=== PATIENT | female | born 1995 | race Caucasian/White ===

== ENCOUNTER 2023-03-12 07:22 | Inpatient (IN) ==
[2023-03-12] MEDS ORDERED: OXYTOCIN 30 UNITS/NSS 30 UNITS/500 ML BAG IV PRN (07:35)
[2023-03-12] MEDS ORDERED: LIDOCAINE 1% LOCAL 20 ML VIAL INFIL PRN (07:35)
[2023-03-12] MEDS ORDERED: Patient's HEIGHT &/or WEIGHT Needed SCH (08:00)
[2023-03-12 08:39] LABS: Hematocrit (blood only) 40.2 % (37.0-47.0); Hemoglobin 13.2 g/dl (12.0-16.0); Mean Corpuscular Hemoglobin 30.4 pg (25.0-34.0); Mean Corpuscular Hgb Conc 32.8 g/dL (32.0-36.0); Mean Corpuscular Volume 92.6 fL (80.0-100.0); Mean Platelet Volume 11.1 fL (9.4-12.4); Platelet Count 182 K/uL (130-400); RDW Coefficient of Variation 13.8 % (11.5-14.5); RDW Standard Deviation 47.1 fL (36.4-46.3); Red Blood Count 4.34 M/uL (4.20-5.40); White Blood Count 12.04 K/ul (4.8-10.8)
[2023-03-12] MEDS: LACTATED RINGER'S 1,000 ML IV PRN ×3 (09:06→18:12)
[2023-03-12] MEDS: OXYTOCIN 30 UNITS/NSS 30 UNITS/500 ML BAG IV PRN (09:07)
--- NOTE | 2023-03-12 13:04 | Obstetrical Progress Note ---
Date of Service March 12, 2023 Assessment & Plan (1) Polyhydramnios: Plan IUP at term. IVF with polyhydramnios. The cervical balloon will be placed back on traction and Pitocin induction begun. Once the balloon has been expelled and she has a regular contraction pattern, we will attempt AROM. Anticipate vaginal delivery. Epidural if or when requested Admission and Anticipated Discharge Date Admission Date: March 12, 2023 Subjective Patient presents for continuation of her induction. She had a cervical balloon successfully placed last evening. She became very uncomfortable and took the tension off of the balloon so she could sleep last p.m. she did have some bleeding with insertion of the balloon but this has subsided. complicated by hypothyroidism polyhydramnios and IVF . Growth scans have shown an appropriate sized infant. GBS is negative Review of Systems Review of Systems: All systems reviewed & are unremarkable except as noted in HPI & below Physical Exam Constitutional: WD/WN, vitals as above Psychiatric: A+Ox3, euthymic affect Genitourinary: OB Exam Abdomen: + vertex, + estimated weight (7-8 pounds) and + irregular contractions Manual OB Exam: + cervical dilation 1 cm, + cervical effacement and + station high OB Exam Monitor Tracing: + external FHT monitor used, + external uterine monitor used, + category I and + normal FHT variability cervical exam difficult as balloon is still in the cervix. Results & Data Vital Signs (Past 12 Hours) Vital Signs Temp Pulse Resp BP 03/12/23 11:58 75 20 118/81 03/12/23 10:53 97.7 F 65 20 114/71 03/12/23 09:46 82 20 132/77 03/12/23 09:08 83 132/80 03/12/23 08:47 82 127/76 03/12/23 08:38 75 122/76 03/12/23 07:48 97.9 F 92 H 20 155/95 H 03/12/23 07:44 92 H 155/95 H PG Care Time/CCT Total # of Minutes Spent Total Time Spent with Patient: Total time spent is greater than 50% in coordination of care (as documented) at patient's floor/unit and/or counseling patient: Coding Level of Care Code None Diagnoses Polyhydramnios O40.9XX0
[2023-03-12] MEDS ORDERED: SODIUM CHLORIDE 0.9% PF INJ 10 ML VIAL ONE (13:58)
[2023-03-12] MEDS ORDERED: fentaNYL citrate PF 100 MCG/2 ML VIAL ONE (13:58)
[2023-03-12] MEDS ORDERED: fentANYL 2 MCG/ML BUPIVacaine 0.125%-NSS 100ML BAG ONE (13:58)
[2023-03-12] MEDS ORDERED: ePHEDrine sulfate 50 MG/ML AMP ONE (13:58)
[2023-03-12] MEDS ORDERED: LIDOCAINE 2%/EPINEPHRINE 1:200,000 20 ML PF ONE (13:59)
[2023-03-12] MEDS ORDERED: BUPIVACAINE 0.25% PF 30 ML VIAL ONE (13:59)
[2023-03-12] MEDS ORDERED: BUPIVACAINE 0.25% PF 30 ML VIAL EPI STA (14:30)
[2023-03-12] MEDS ORDERED: diphenhydrAMINE 50 MG/ML VIAL IV PRN (14:30)
[2023-03-12] MEDS ORDERED: LIDOCAINE 2% MPF LOCAL 5 ML VIAL EPI PRN (14:30)
[2023-03-12] MEDS ORDERED: NALOXONE HCL 0.4 MG/1 ML VIAL/CARP IV PRN (14:30)
[2023-03-12] MEDS ORDERED: NALBUPHINE HCL 5 MG in SYRINGE 0 ML IV PRN (14:30)
[2023-03-12] MEDS ORDERED: ROPIVACAINE 0.5% PF 5 MG/ML 20 ML VIAL EPI PRN (14:30)
[2023-03-12] MEDS ORDERED: LIDOCAINE 2%/EPINEPHRINE 1:200,000 20 ML PF EPI STA (14:30)
[2023-03-12] MEDS ORDERED: SODIUM CHLORIDE 0.9% PF INJ 10 ML VIAL EPI STA (14:30)
[2023-03-12] MEDS ORDERED: fentaNYL citrate PF 100 MCG/2 ML VIAL EPI PRN (14:30)
[2023-03-12] MEDS ORDERED: fentaNYL citrate PF 100 MCG/2 ML VIAL EPI STA (14:30)
[2023-03-12] MEDS ORDERED: NALOXONE HCL 1 MG in SODIUM CHLORIDE 0.9% 1,000 ML IV PRN (14:30)
[2023-03-12] MEDS ORDERED: ePHEDrine sulfate 50 MG/ML AMP IV PRN (14:30)
[2023-03-12] MEDS ORDERED: SODIUM CHLORIDE 0.9% PF INJ 10 ML VIAL EPI PRN (14:30)
[2023-03-12] MEDS ORDERED: BUPIVACAINE 0.25% PF 30 ML VIAL EPI PRN (14:30)
--- NOTE | 2023-03-12 14:30 | Anesthesiology Consultation ---
Date of Service March 12, 2023 Assessment & Plan (1) Encounter for pre-operative examination: Chart Review Chart Review: Patient NOT seen in Pre Admission Testing and Acceptable Risk for Labor Epidural Consults Requested none History Height/Weight Height: 5 ft 3 in Weight: 87.543 kg Allergies Allergy/AdvReac Type Severity Reaction Status Date / Time sesame oil Allergy Intermediate swellingSEE Verified 03/11/23 19:48 COMMENT Medications Home Medications Medication Instructions Recorded Confirmed Last Taken cholecalciferol (vitamin D3) 25 5,000 unit PO DAILY 01/04/21 03/12/23 03/11/23 mcg (1,000 unit) capsule aspirin 81 mg tablet,delayed 81 mg PO DAILY 08/16/22 03/12/23 03/11/23 release (Adult Aspirin Regimen) docosahexaenoic acid 200 mg 200 mg PO DAILY 09/17/22 03/12/23 03/11/23 capsule ( DHA) levothyroxine 112 mcg tablet 112 mcg PO DAILY 90 days #90 tabs 10/30/22 03/12/23 03/11/23 Active Medications Generic Name Dose Route Start Last Admin Trade Name Freq PRN Reason Stop Dose Admin Oxytocin 30 units in 500 mls @ 13 mls/hr 03/12/23 07:35 03/12/23 13:15 Pitocin 30 Units/Nss IV 03/14/23 07:34 0.78 units/hr .Q24H PRN 13 mls/hr Labor Induction/Augmentation Titration Protocol 0.78 UNITS/HR Lactated Ringer's 1,000 mls @ 125 mls/hr 03/12/23 07:35 03/12/23 09:06 Lr IV 03/14/23 07:34 125 mls/hr .Q8H PRN Administration L&D Protocol Protocol Past Medical History Medical History Polyhydramnios Frequent UTI Albert's thyroiditis Hypothyroidism Past Family History Family History Brother Cancer Hogkin's lymphoa Father Hypertension Hyperlipemia Mother Thyroid disorder Past Surgical History Surgical History S/P wisdom tooth extraction No significant past surgical history Social History Smoking Status: Never smoker Do You Dip or Chew Tobacco: No Hx Alcohol Use: No Hx Substance Use: No Physical Exam Vital Signs Last Vital Signs Temp 97.7 F 03/12/23 10:53 Pulse 85 03/12/23 14:26 Resp 20 03/12/23 11:58 BP 144/91 H 03/12/23 14:10 Pulse Ox 96 03/12/23 14:26 Testing Laboratory Results 03/12/23 08:16
[2023-03-12] MEDS ORDERED: ACETAMINOPHEN 325 MG TAB PO PRN (17:57)
--- NOTE | 2023-03-12 20:06 | Labor Progress Brief Note ---
Date of Service March 12, 2023 Subjective Reason For Note: Routine Evaluation starting to feel some pelvic pressure pitocin now at 23 milliunits contractions are getting more regular FHT- reassuring cervix 5-6cm/80/-2 Review of Systems All systems reviewed & are unremarkable except as noted in HPI & below Assessment & Plan (1) Polyhydramnios: Plan continue current labor plan vertex how better applied to the cervix pitocin limit increased to 30 milliunits Admission and Anticipated Discharge Date Admission Date: March 12, 2023 Results & Data Vital Signs (Past 12 Hours) Vital Signs Temp Pulse Resp BP Pulse Ox 03/12/23 19:59 86 98 03/12/23 19:54 74 99 03/12/23 19:51 81 124/75 03/12/23 19:49 72 99 03/12/23 19:44 66 100 03/12/23 19:39 79 99 03/12/23 19:35 70 117/77 03/12/23 19:34 85 97 03/12/23 19:29 75 99 03/12/23 19:24 65 99 03/12/23 19:21 85 20 123/80 03/12/23 19:19 75 98 03/12/23 19:14 69 98 03/12/23 19:09 66 98 03/12/23 19:07 98.1 F 68 20 118/74 03/12/23 19:04 76 99 03/12/23 18:59 87 98 03/12/23 18:54 93 H 98 03/12/23 18:52 81 112/71 03/12/23 18:49 78 99 03/12/23 18:44 90 98 03/12/23 18:39 85 99 03/12/23 18:35 71 120/66 03/12/23 18:34 89 99 03/12/23 18:29 67 99 03/12/23 18:24 65 99 03/12/23 18:21 63 20 121/73 03/12/23 18:19 69 98 03/12/23 18:14 76 99 03/12/23 18:09 90 100 03/12/23 18:06 81 123/80 03/12/23 18:04 83 100 03/12/23 17:59 86 100 03/12/23 17:54 68 98 03/12/23 17:50 62 20 114/67 03/12/23 17:49 88 98 03/12/23 17:44 85 98 03/12/23 17:39 74 98 03/12/23 17:36 69 125/73 03/12/23 17:34 84 99 03/12/23 17:29 69 99 03/12/23 17:24 68 98 03/12/23 17:20 78 20 127/68 03/12/23 17:19 73 97 03/12/23 17:14 71 96 03/12/23 17:09 78 96 03/12/23 17:07 73 118/73 03/12/23 17:04 78 97 03/12/23 16:59 77 97 03/12/23 16:54 74 97 03/12/23 16:52 98.6 F 87 20 124/84 03/12/23 16:49 98 H 97 03/12/23 16:44 75 98 03/12/23 16:39 64 96 03/12/23 16:35 71 109/69 03/12/23 16:34 71 96 03/12/23 16:29 67 96 03/12/23 16:24 66 96 03/12/23 16:21 75 115/76 03/12/23 16:19 82 97 03/12/23 16:14 79 98 03/12/23 16:09 87 98 03/12/23 16:04 108 H 94 03/12/23 16:00 60 100/58 L 03/12/23 15:59 62 96 03/12/23 15:55 72 111/63 03/12/23 15:54 64 98 03/12/23 15:51 60 20 110/60 03/12/23 15:49 71 97 03/12/23 15:45 63 20 112/71 03/12/23 15:44 69 96 03/12/23 15:40 69 20 112/68 03/12/23 15:39 71 98 03/12/23 15:35 71 20 118/63 03/12/23 15:34 66 98 03/12/23 15:30 70 117/65 03/12/23 15:29 67 98 03/12/23 15:25 95 H 20 123/75 03/12/23 15:24 92 H 97 03/12/23 15:21 76 20 117/74 03/12/23 15:19 89 98 03/12/23 15:14 76 117/66 99 03/12/23 15:12 69 119/69 03/12/23 15:11 98.2 F 77 20 127/78 03/12/23 15:09 99 03/12/23 15:09 83 03/12/23 15:09 95 H 20 115/85 03/12/23 15:07 83 125/68 03/12/23 15:04 92 H 20 124/72 98 03/12/23 15:03 77 20 137/77 03/12/23 15:00 89 20 116/67 03/12/23 14:59 98 03/12/23 14:59 98 H 03/12/23 14:59 77 20 118/68 03/12/23 14:57 86 20 115/78 03/12/23 14:55 91 H 20 109/65 03/12/23 14:54 90 97 03/12/23 14:51 86 133/71 03/12/23 14:49 97 H 99 03/12/23 14:44 118 H 98 03/12/23 14:39 78 146/79 H 100 03/12/23 14:31 88 97 03/12/23 14:26 85 96 03/12/23 14:21 79 99 03/12/23 14:16 86 99 03/12/23 14:11 103 H 99 03/12/23 14:10 88 144/91 H 03/12/23 13:02 81 120/76 03/12/23 11:58 75 20 118/81 03/12/23 10:53 97.7 F 65 20 114/71 03/12/23 09:46 82 20 132/77 03/12/23 09:08 83 132/80 03/12/23 08:47 82 127/76 03/12/23 08:38 75 122/76
[2023-03-12] MEDS ORDERED: ONDANSETRON INJ 2 MG/ML 2 ML VIAL ONE (21:29)
[2023-03-12] MEDS: fentANYL 2 MCG/ML BUPIVacaine 0.125%-NSS 100ML BAG EPI PRN (21:36)
[2023-03-12] MEDS ORDERED: NURSING L&D Epidural Breakthrough Pain Update ONE (23:54)
--- NOTE | 2023-03-13 01:40 | Anesthesia Procedure Note ---
Date of Service March 13, 2023 Anesthesia Epidural Re-Dose Vital Signs Temp Pulse Resp BP Pulse Ox O2 Del Method 98.4 F 150 H 18 126/89 100 Room Air 03/12/23 23:25 03/13/23 01:36 03/12/23 23:25 03/13/23 01:36 03/13/23 01:34 03/12/23 23:15 Notes Pain Intensity: 0 Dilatation (cm): 7.5 Effacement (%): 90 Called by nursing to evaluate epidural as the patient is having increased pain. The epidural was re-dosed with the following medications (all medications via epidural route) after negative aspiration of the epidural catheter for CSF/HEME. 0.125% Bupivacaine (8ml) with 100 mcg Fentanyl After Epidural Re-Dose Mental Status: alert / awake / arousable Pain: improving with treatment Airway Patency, RR, SpO2: stable & adequate BP & HR: stable & adequate
[2023-03-13] MEDS: LACTATED RINGER'S 1,000 ML IV PRN ×3 (01:47→10:27)
[2023-03-13] MEDS: ONDANSETRON INJ 2 MG/ML 2 ML VIAL IV PRN ×3 (02:13→13:29)
[2023-03-13] MEDS: CALCIUM CARBONATE 500 MG CHEWABLE TAB PO PRN ×2 (02:43→13:29)
--- NOTE | 2023-03-13 03:28 | Labor Progress Brief Note ---
Date of Service March 13, 2023 Subjective Reason For Note: Routine Evaluation pitocin now at 27 millliunits and still difficult to maintain an adequate contraction pattern she is feeling increased pelvic pressure with some of the contractions. cervix 7-8cm with mild swelling of the right cervix. baby doesn't tolerate it when she is lying on her right side but is otherwise a reassuring FHR tracing will place [place] catheter and Type & screen continue to increase pitocin to maximum of 30 milliunits Assessment & Plan Admission and Anticipated Discharge Date Admission Date: March 12, 2023 Results & Data Vital Signs (Past 12 Hours) Vital Signs Temp Pulse Resp BP Pulse Ox O2 Del Method 03/13/23 03:22 90 127/77 03/13/23 03:19 95 H 100 03/13/23 03:14 72 96 03/13/23 03:09 75 98 03/13/23 03:05 63 131/73 03/13/23 03:04 69 98 03/13/23 02:59 74 96 03/13/23 02:54 80 95 03/13/23 02:52 68 129/75 03/13/23 02:49 65 97 03/13/23 02:44 18 03/13/23 02:44 99.0 F 96 H 18 97 03/13/23 02:42 80 94 03/13/23 02:39 81 98 03/13/23 02:36 75 120/65 03/13/23 02:34 79 99 03/13/23 02:31 85 92 03/13/23 02:29 85 99 03/13/23 02:24 93 H 99 03/13/23 02:23 85 93 03/13/23 02:20 91 H 144/87 H 03/13/23 02:19 91 H 100 03/13/23 02:14 107 H 99 03/13/23 02:09 86 97 03/13/23 02:06 72 140/84 03/13/23 02:04 74 97 03/13/23 01:59 67 100 03/13/23 01:58 70 94 03/13/23 01:54 72 99 03/13/23 01:51 75 136/87 03/13/23 01:49 77 100 03/13/23 01:44 79 100 03/13/23 01:39 97 H 98 03/13/23 01:36 150 H 126/89 03/13/23 01:34 75 100 03/13/23 01:29 71 100 03/13/23 01:24 61 100 03/13/23 01:22 62 120/61 03/13/23 01:19 60 100 03/13/23 01:14 76 100 03/13/23 01:09 77 98 03/13/23 01:05 79 125/83 03/13/23 01:04 68 98 03/13/23 00:59 74 98 03/13/23 00:54 80 97 03/13/23 00:51 96 H 119/88 03/13/23 00:49 83 98 03/13/23 00:44 76 98 03/13/23 00:39 68 97 03/13/23 00:36 74 125/84 03/13/23 00:34 81 99 03/13/23 00:29 79 99 03/13/23 00:24 90 97 03/13/23 00:22 91 H 129/91 03/13/23 00:19 75 97 03/13/23 00:14 107 H 97 03/13/23 00:09 95 H 96 03/13/23 00:05 71 120/78 03/13/23 00:04 80 98 03/12/23 23:59 77 97 03/12/23 23:54 81 98 03/12/23 23:51 75 124/82 03/12/23 23:49 80 98 03/12/23 23:44 81 97 03/12/23 23:39 74 96 03/12/23 23:36 80 118/58 L 03/12/23 23:34 86 97 03/12/23 23:29 79 96 03/12/23 23:25 18 03/12/23 23:25 98.4 F 18 03/12/23 23:24 84 96 03/12/23 23:21 86 136/79 03/12/23 23:19 87 98 03/12/23 23:15 Room Air 03/12/23 23:14 82 99 03/12/23 23:09 81 97 03/12/23 23:06 73 120/69 03/12/23 23:04 74 96 03/12/23 22:59 76 96 03/12/23 22:54 77 95 03/12/23 22:52 72 120/66 01/02/24 22:49 70 98 03/12/23 22:44 77 97 03/12/23 22:39 87 96 03/12/23 22:37 73 20 118/64 03/12/23 22:34 87 97 03/12/23 22:29 85 98 03/12/23 22:24 77 97 03/12/23 22:23 80 115/80 03/12/23 22:19 73 97 03/12/23 22:14 76 97 03/12/23 22:09 89 97 03/12/23 22:07 73 124/80 03/12/23 22:04 87 97 03/12/23 21:59 90 96 03/12/23 21:54 77 97 03/12/23 21:49 72 99 03/12/23 21:44 82 97 03/12/23 21:42 92 H 91 03/12/23 21:39 82 98 03/12/23 21:37 83 124/85 03/12/23 21:34 81 99 03/12/23 21:29 76 100 03/12/23 21:24 92 H 100 03/12/23 21:20 92 H 131/92 03/12/23 21:19 97 H 100 03/12/23 21:16 99 H 86 L 03/12/23 21:14 92 H 100 03/12/23 21:09 76 97 03/12/23 21:06 84 123/79 03/12/23 21:04 76 99 03/12/23 21:00 20 03/12/23 21:00 98.2 F 20 03/12/23 20:59 67 99 03/12/23 20:54 77 97 03/12/23 20:51 70 129/75 03/12/23 20:49 80 99 03/12/23 20:44 89 99 03/12/23 20:39 72 98 03/12/23 20:36 58 L 20 131/75 03/12/23 20:34 93 H 98 03/12/23 20:29 73 98 03/12/23 20:24 64 98 03/12/23 20:21 69 125/79 03/12/23 20:19 63 97 03/12/23 20:14 62 97 03/12/23 20:09 63 97 03/12/23 20:05 66 119/75 03/12/23 20:04 66 97 03/12/23 19:59 86 98 03/12/23 19:54 74 99 03/12/23 19:51 81 124/75 03/12/23 19:49 72 99 03/12/23 19:44 66 100 03/12/23 19:39 79 99 03/12/23 19:35 70 18 117/77 03/12/23 19:34 85 97 03/12/23 19:29 75 99 03/12/23 19:24 65 99 03/12/23 19:21 85 20 123/80 03/12/23 19:19 75 98 03/12/23 19:14 69 98 03/12/23 19:09 66 98 03/12/23 19:07 98.1 F 68 20 118/74 03/12/23 19:04 76 99 03/12/23 18:59 87 98 03/12/23 18:54 93 H 98 03/12/23 18:52 81 112/71 03/12/23 18:49 78 99 03/12/23 18:44 90 98 03/12/23 18:39 85 99 03/12/23 18:35 71 120/66 03/12/23 18:34 89 99 03/12/23 18:29 67 99 03/12/23 18:24 65 99 03/12/23 18:21 63 20 121/73 03/12/23 18:19 69 98 03/12/23 18:14 76 99 03/12/23 18:09 90 100 03/12/23 18:06 81 123/80 03/12/23 18:04 83 100 03/12/23 17:59 86 100 03/12/23 17:54 68 98 03/12/23 17:50 62 20 114/67 03/12/23 17:49 88 98 03/12/23 17:44 85 98 03/12/23 17:39 74 98 03/12/23 17:36 69 125/73 03/12/23 17:34 84 99 03/12/23 17:29 69 99 03/12/23 17:24 68 98 03/12/23 17:20 78 20 127/68 03/12/23 17:19 73 97 03/12/23 17:14 71 96 03/12/23 17:09 78 96 03/12/23 17:07 73 118/73 03/12/23 17:04 78 97 03/12/23 16:59 77 97 03/12/23 16:54 74 97 03/12/23 16:52 98.6 F 87 20 124/84 03/12/23 16:49 98 H 97 03/12/23 16:44 75 98 03/12/23 16:39 64 96 03/12/23 16:35 71 109/69 03/12/23 16:34 71 96 03/12/23 16:29 67 96 03/12/23 16:24 66 96 03/12/23 16:21 75 115/76 03/12/23 16:19 82 97 03/12/23 16:14 79 98 03/12/23 16:09 87 98 03/12/23 16:04 108 H 94 03/12/23 16:00 60 100/58 L 03/12/23 15:59 62 96 03/12/23 15:55 72 111/63 03/12/23 15:54 64 98 03/12/23 15:51 60 20 110/60 03/12/23 15:49 71 97 03/12/23 15:45 63 20 112/71 03/12/23 15:44 69 96 03/12/23 15:40 69 20 112/68 03/12/23 15:39 71 98 03/12/23 15:35 71 20 118/63 03/12/23 15:34 66 98 03/12/23 15:30 70 117/65 03/12/23 15:29 67 98 03/12/23 15:25 95 H 20 123/75
[2023-03-13] MEDS: fentANYL 2 MCG/ML BUPIVacaine 0.125%-NSS 100ML BAG EPI PRN ×2 (03:30→09:14)
[2023-03-13] MEDS: OXYTOCIN 30 UNITS/NSS 30 UNITS/500 ML BAG IV PRN (09:05)
--- NOTE | 2023-03-13 09:36 | Labor Progress Brief Note ---
Date of Service March 13, 2023 Subjective Patient uncomfortable with contractions. FHT Cat 1 Sanders Q 2 SVE anterior lip/100/+2 Will continue labor. Assessment & Plan Admission and Anticipated Discharge Date Admission Date: March 12, 2023 Results & Data Vital Signs (Past 12 Hours) Vital Signs Temp Pulse Resp BP Pulse Ox O2 Del Method 03/13/23 09:30 83 99 03/13/23 09:25 73 100 03/13/23 09:21 84 136/86 03/13/23 09:20 82 100 03/13/23 09:15 87 100 03/13/23 09:10 83 100 03/13/23 09:06 107 H 141/83 H 03/13/23 09:05 106 H 100 03/13/23 09:03 18 03/13/23 09:03 18 03/13/23 09:00 120 H 100 03/13/23 08:55 83 97 03/13/23 08:51 90 128/81 03/13/23 08:50 88 100 03/13/23 08:45 74 98 03/13/23 08:40 88 96 03/13/23 08:35 83 136/75 96 03/13/23 08:30 85 99 03/13/23 08:25 68 99 03/13/23 08:20 76 137/78 99 03/13/23 08:15 78 99 03/13/23 08:10 83 100 03/13/23 08:05 89 99 03/13/23 08:04 98 H 84 L 03/13/23 08:01 20 03/13/23 08:01 20 03/13/23 08:00 106 H 99 03/13/23 07:55 94 H 99 03/13/23 07:51 75 133/90 03/13/23 07:50 97 H 97 03/13/23 07:45 94 H 98 03/13/23 07:40 76 97 03/13/23 07:37 85 132/84 03/13/23 07:35 88 97 03/13/23 07:30 89 99 03/13/23 07:25 97 H 99 03/13/23 07:21 36.8 C 87 18 154/83 H 03/13/23 07:20 82 97 03/13/23 07:16 96 H 88 L 03/13/23 07:15 79 95 01/03/24 07:10 93 H 99 03/13/23 07:07 93 H 140/87 03/13/23 07:05 96 H 98 03/13/23 07:00 105 H 18 100 03/13/23 06:55 87 100 03/13/23 06:51 88 135/83 03/13/23 06:50 92 H 97 03/13/23 06:45 110 H 93 03/13/23 06:40 89 99 03/13/23 06:36 86 143/83 H 03/13/23 06:35 90 100 03/13/23 06:30 37.2 C 109 H 18 100 03/13/23 06:25 107 H 100 03/13/23 06:22 88 120/96 03/13/23 06:20 86 100 03/13/23 06:15 109 H 97 03/13/23 06:10 66 96 03/13/23 06:06 70 151/74 H 03/13/23 06:05 97 H 96 03/13/23 06:00 95 H 18 96 03/13/23 05:55 103 H 97 03/13/23 05:52 68 137/75 03/13/23 05:50 76 125/70 98 03/13/23 05:45 76 96 03/13/23 05:40 74 96 03/13/23 05:36 61 124/74 03/13/23 05:35 68 95 03/13/23 05:34 73 92 03/13/23 05:30 96 H 18 97 03/13/23 05:25 69 95 03/13/23 05:21 62 137/78 03/13/23 05:20 69 98 03/13/23 05:15 72 95 03/13/23 05:10 67 100 03/13/23 05:06 72 138/76 03/13/23 05:05 75 90 03/13/23 05:04 81 93 03/13/23 05:00 73 18 97 03/13/23 04:56 86 93 03/13/23 04:55 73 99 03/13/23 04:52 72 130/75 03/13/23 04:50 95 03/13/23 04:50 77 03/13/23 04:50 83 93 03/13/23 04:45 84 99 03/13/23 04:40 78 99 03/13/23 04:35 83 136/73 99 03/13/23 04:30 81 18 97 03/13/23 04:25 78 97 03/13/23 04:21 75 132/80 03/13/23 04:20 80 98 03/13/23 04:15 97 03/13/23 04:15 76 03/13/23 04:15 73 93 03/13/23 04:10 92 H 96 03/13/23 04:09 104 H 87 L 03/13/23 04:06 79 120/73 03/13/23 04:04 78 98 03/13/23 04:00 18 03/13/23 04:00 36.8 C 18 03/13/23 03:59 79 100 03/13/23 03:54 86 99 03/13/23 03:51 76 113/67 93 03/13/23 03:49 69 98 03/13/23 03:46 70 94 03/13/23 03:44 79 99 03/13/23 03:39 78 96 03/13/23 03:37 73 93 03/13/23 03:36 82 133/83 03/13/23 03:34 89 98 03/13/23 03:30 18 03/13/23 03:30 18 03/13/23 03:29 84 100 03/13/23 03:24 82 100 03/13/23 03:22 90 127/77 03/13/23 03:19 95 H 100 03/13/23 03:14 72 96 03/13/23 03:09 75 98 03/13/23 03:05 63 131/73 03/13/23 03:04 69 98 03/13/23 02:59 74 96 03/13/23 02:54 80 95 03/13/23 02:52 68 129/75 03/13/23 02:49 65 97 03/13/23 02:44 18 03/13/23 02:44 37.2 C 96 H 18 97 03/13/23 02:42 80 94 03/13/23 02:39 81 98 03/13/23 02:36 75 120/65 03/13/23 02:34 79 99 03/13/23 02:31 85 92 03/13/23 02:29 85 99 03/13/23 02:24 93 H 99 03/13/23 02:23 85 93 03/13/23 02:20 91 H 144/87 H 03/13/23 02:19 91 H 100 03/13/23 02:14 107 H 99 03/13/23 02:09 86 97 03/13/23 02:06 72 140/84 03/13/23 02:04 74 97 03/13/23 01:59 67 100 03/13/23 01:58 70 94 03/13/23 01:54 72 99 03/13/23 01:51 75 136/87 03/13/23 01:49 77 100 03/13/23 01:44 79 100 03/13/23 01:39 97 H 98 03/13/23 01:36 150 H 126/89 03/13/23 01:34 75 100 03/13/23 01:29 71 100 03/13/23 01:24 61 100 03/13/23 01:22 62 120/61 03/13/23 01:19 60 100 03/13/23 01:14 76 100 03/13/23 01:09 77 98 03/13/23 01:05 79 125/83 03/13/23 01:04 68 98 03/13/23 00:59 74 98 03/13/23 00:54 80 97 03/13/23 00:51 96 H 119/88 03/13/23 00:49 83 98 03/13/23 00:44 76 98 03/13/23 00:39 68 97 03/13/23 00:36 74 125/84 03/13/23 00:34 81 99 03/13/23 00:29 79 99 03/13/23 00:24 90 97 03/13/23 00:22 91 H 129/91 03/13/23 00:19 75 97 03/13/23 00:14 107 H 97 03/13/23 00:09 95 H 96 03/13/23 00:05 71 120/78 03/13/23 00:04 80 98 03/12/23 23:59 77 97 03/12/23 23:54 81 98 03/12/23 23:51 75 124/82 03/12/23 23:49 80 98 03/12/23 23:44 81 97 03/12/23 23:39 74 96 03/12/23 23:36 80 118/58 L 03/12/23 23:34 86 97 03/12/23 23:29 79 96 03/12/23 23:25 18 03/12/23 23:25 36.9 C 18 03/12/23 23:24 84 96 03/12/23 23:21 86 136/79 03/12/23 23:19 87 98 03/12/23 23:15 Room Air 03/12/23 23:14 82 99 03/12/23 23:09 81 97 03/12/23 23:06 73 120/69 03/12/23 23:04 74 96 03/12/23 22:59 76 96 03/12/23 22:54 77 95 03/12/23 22:52 72 120/66 03/12/23 22:49 70 98 03/12/23 22:44 77 97 03/12/23 22:39 87 96 03/12/23 22:37 73 20 118/64 03/12/23 22:34 87 97 03/12/23 22:29 85 98 03/12/23 22:24 77 97 03/12/23 22:23 80 115/80 03/12/23 22:19 73 97 03/12/23 22:14 76 97 03/12/23 22:09 89 97 03/12/23 22:07 73 124/80 03/12/23 22:04 87 97 03/12/23 21:59 90 96 03/12/23 21:54 77 97 03/12/23 21:49 72 99 03/12/23 21:44 82 97 03/12/23 21:42 92 H 91 03/12/23 21:39 82 98 03/12/23 21:37 83 124/85 Coding Level of Care Code None
--- NOTE | 2023-03-13 10:24 | Labor Progress Brief Note ---
Date of Service March 13, 2023 Subjective Feeling urge to push with contractions. FHT Cat 1 [place] Q 2-3 SVE anterior lip has resolved, /+2 Continue pushing. Assessment & Plan Admission and Anticipated Discharge Date Admission Date: March 12, 2023 Results & Data Vital Signs (Past 12 Hours) Vital Signs Temp Pulse Resp BP Pulse Ox O2 Del Method 03/13/23 10:20 93 H 100 03/13/23 10:15 111 H 100 03/13/23 10:10 90 100 03/13/23 10:05 92 H 98 03/13/23 10:00 96 H 100 03/13/23 09:55 100 H 97 03/13/23 09:52 78 124/85 03/13/23 09:50 91 H 100 03/13/23 09:45 86 99 03/13/23 09:40 92 H 99 03/13/23 09:35 89 131/80 98 03/13/23 09:30 83 99 03/13/23 09:25 73 100 03/13/23 09:21 84 136/86 03/13/23 09:20 82 100 03/13/23 09:15 87 100 03/13/23 09:10 83 100 03/13/23 09:06 107 H 141/83 H 03/13/23 09:05 106 H 100 03/13/23 09:03 18 03/13/23 09:03 18 03/13/23 09:00 120 H 100 03/13/23 08:55 83 97 03/13/23 08:51 90 128/81 03/13/23 08:50 88 100 03/13/23 08:45 74 98 03/13/23 08:40 88 96 03/13/23 08:35 83 136/75 96 03/13/23 08:30 85 99 03/13/23 08:25 68 99 03/13/23 08:20 76 137/78 99 03/13/23 08:15 78 99 03/13/23 08:10 83 100 03/13/23 08:05 89 99 03/13/23 08:04 98 H 84 L 03/13/23 08:01 20 03/13/23 08:01 20 03/13/23 08:00 106 H 99 03/13/23 07:55 94 H 99 03/13/23 07:51 75 133/90 03/13/23 07:50 97 H 97 03/13/23 07:45 94 H 98 03/13/23 07:40 76 97 03/13/23 07:37 85 132/84 03/13/23 07:35 88 97 03/13/23 07:30 89 99 03/13/23 07:25 97 H 99 03/13/23 07:21 36.8 C 87 18 154/83 H 03/13/23 07:20 82 97 03/13/23 07:16 96 H 88 L 03/13/23 07:15 79 95 03/13/23 07:10 93 H 99 03/13/23 07:07 93 H 140/87 03/13/23 07:05 96 H 98 03/13/23 07:00 105 H 18 100 03/13/23 06:55 87 100 03/13/23 06:51 88 135/83 03/13/23 06:50 92 H 97 03/13/23 06:45 110 H 93 03/13/23 06:40 89 99 03/13/23 06:36 86 143/83 H 03/13/23 06:35 90 100 03/13/23 06:30 37.2 C 109 H 18 100 03/13/23 06:25 107 H 100 03/13/23 06:22 88 120/96 03/13/23 06:20 86 100 03/13/23 06:15 109 H 97 03/13/23 06:10 66 96 03/13/23 06:06 70 151/74 H 03/13/23 06:05 97 H 96 03/13/23 06:00 95 H 18 96 03/13/23 05:55 103 H 97 03/13/23 05:52 68 137/75 03/13/23 05:50 76 125/70 98 03/13/23 05:45 76 96 03/13/23 05:40 74 96 03/13/23 05:36 61 124/74 03/13/23 05:35 68 95 03/13/23 05:34 73 92 03/13/23 05:30 96 H 18 97 03/13/23 05:25 69 95 03/13/23 05:21 62 137/78 03/13/23 05:20 69 98 03/13/23 05:15 72 95 01/03/24 05:10 67 100 03/13/23 05:06 72 138/76 03/13/23 05:05 75 90 03/13/23 05:04 81 93 03/13/23 05:00 73 18 97 03/13/23 04:56 86 93 03/13/23 04:55 73 99 03/13/23 04:52 72 130/75 03/13/23 04:50 95 03/13/23 04:50 77 03/13/23 04:50 83 93 03/13/23 04:45 84 99 03/13/23 04:40 78 99 03/13/23 04:35 83 136/73 99 03/13/23 04:30 81 18 97 03/13/23 04:25 78 97 03/13/23 04:21 75 132/80 03/13/23 04:20 80 98 03/13/23 04:15 97 03/13/23 04:15 76 03/13/23 04:15 73 93 03/13/23 04:10 92 H 96 03/13/23 04:09 104 H 87 L 03/13/23 04:06 79 120/73 03/13/23 04:04 78 98 03/13/23 04:00 18 03/13/23 04:00 36.8 C 18 03/13/23 03:59 79 100 03/13/23 03:54 86 99 03/13/23 03:51 76 113/67 93 03/13/23 03:49 69 98 03/13/23 03:46 70 94 03/13/23 03:44 79 99 03/13/23 03:39 78 96 03/13/23 03:37 73 93 03/13/23 03:36 82 133/83 03/13/23 03:34 89 98 03/13/23 03:30 18 03/13/23 03:30 18 03/13/23 03:29 84 100 03/13/23 03:24 82 100 03/13/23 03:22 90 127/77 03/13/23 03:19 95 H 100 03/13/23 03:14 72 96 03/13/23 03:09 75 98 03/13/23 03:05 63 131/73 03/13/23 03:04 69 98 03/13/23 02:59 74 96 03/13/23 02:54 80 95 03/13/23 02:52 68 129/75 03/13/23 02:49 65 97 03/13/23 02:44 18 03/13/23 02:44 37.2 C 96 H 18 97 03/13/23 02:42 80 94 03/13/23 02:39 81 98 03/13/23 02:36 75 120/65 03/13/23 02:34 79 99 03/13/23 02:31 85 92 03/13/23 02:29 85 99 03/13/23 02:24 93 H 99 03/13/23 02:23 85 93 03/13/23 02:20 91 H 144/87 H 03/13/23 02:19 91 H 100 03/13/23 02:14 107 H 99 03/13/23 02:09 86 97 03/13/23 02:06 72 140/84 03/13/23 02:04 74 97 03/13/23 01:59 67 100 03/13/23 01:58 70 94 03/13/23 01:54 72 99 03/13/23 01:51 75 136/87 03/13/23 01:49 77 100 03/13/23 01:44 79 100 03/13/23 01:39 97 H 98 03/13/23 01:36 150 H 126/89 03/13/23 01:34 75 100 03/13/23 01:29 71 100 03/13/23 01:24 61 100 03/13/23 01:22 62 120/61 03/13/23 01:19 60 100 03/13/23 01:14 76 100 03/13/23 01:09 77 98 03/13/23 01:05 79 125/83 03/13/23 01:04 68 98 03/13/23 00:59 74 98 03/13/23 00:54 80 97 03/13/23 00:51 96 H 119/88 03/13/23 00:49 83 98 03/13/23 00:44 76 98 03/13/23 00:39 68 97 03/13/23 00:36 74 125/84 03/13/23 00:34 81 99 03/13/23 00:29 79 99 03/13/23 00:24 90 97 03/13/23 00:22 91 H 129/91 03/13/23 00:19 75 97 03/13/23 00:14 107 H 97 03/13/23 00:09 95 H 96 03/13/23 00:05 71 120/78 03/13/23 00:04 80 98 03/12/23 23:59 77 97 03/12/23 23:54 81 98 03/12/23 23:51 75 124/82 03/12/23 23:49 80 98 03/12/23 23:44 81 97 03/12/23 23:39 74 96 03/12/23 23:36 80 118/58 L 03/12/23 23:34 86 97 03/12/23 23:29 79 96 03/12/23 23:25 18 03/12/23 23:25 36.9 C 18 03/12/23 23:24 84 96 03/12/23 23:21 86 136/79 03/12/23 23:19 87 98 03/12/23 23:15 Room Air 03/12/23 23:14 82 99 03/12/23 23:09 81 97 03/12/23 23:06 73 120/69 03/12/23 23:04 74 96 03/12/23 22:59 76 96 03/12/23 22:54 77 95 03/12/23 22:52 72 120/66 03/12/23 22:49 70 98 03/12/23 22:44 77 97 03/12/23 22:39 87 96 03/12/23 22:37 73 20 118/64 03/12/23 22:34 87 97 03/12/23 22:29 85 98 03/12/23 22:24 77 97 Coding Level of Care Code None
[2023-03-13] MEDS ORDERED: METHYLERGONOVINE MALEATE 0.2 MG/ML AMP ONE (12:39)
[2023-03-13] MEDS ORDERED: CARBOPROST TROMETHAMINE 250 MCG/ML AMPUL ONE (12:50)
[2023-03-13] MEDS ORDERED: TRANEXAMIC ACID / 0.7% NACL 1000MG/100ML BAG IV ONE (13:10)
--- NOTE | 2023-03-13 13:27 | Delivery Summary ---
Vaginal Delivery Summary Date of Service March 13, 2023 Vaginal Delivery Summary and 3rd Degree LAC Vaginal Delivery Summary: Pre-delivery diagnoses: 27yo @ 39 /, IOL for polyhydramnios, IVF/ICSI, hypothyroidism, Rh negative Post-delivery diagnoses: same Procedure: spontaneous vaginal delivery, repair of partial 3rd degree laceration Surgeon: Marli Rice DO Complications: none Findings: Viable male . Apgars: 2, 7. Weight pending, please see nursery records. Estimated blood loss: 500ml Description of delivery: The patient progressed to complete with epidural anesthesia. She then began to push. She spontaneously vaginally delivered a viable from the cephalic presentation. The head delivered in ROP position. The anterior shoulder delivered, followed by the posterior shoulder, followed by the body. No nuchal. The baby was placed on mother's abdomen and stimulated and a spontaneous cry was heard. The cord was doubly clamped and cut and the baby was handed off to the waste picker. A segment was retained for cord gases. Cord blood was obtained. The placenta was delivered spontaneously intact with a 3-vessel cord. The uterus and vagina were swept of clots and debris. IV pitocin was given. The uterus became firm. The cervix, vagina, and perineum were inspected. A partial 3rd degree perineal laceration was noted - the anal sphincter muscle was intact, but the fascial sheath was ruptured. This was reapproximated with 3-0 Chromic in a [id number] suture. 1% lidocaine infused at laceration due to patient's feeling pain with the suture. The remaining laceration was repaired with 3-0 Vicryl in standard fashion. At the end of the repair, there were multiple clots expelled from the uterus. The uterus was swept again, and became firm with evacuation of clots. Hemabate, methergine, and TXA were given to aid in hemostasis. Additional [id number] sutures were used along the raw edges of the perineal laceration, this caused some additional tearing through the mucosa. Therefore, once good hemostasis was achieved with suture, Jesica powder and pressure with 2 Raytec sponges were used at the perineal laceration for further hemostasis. Excellent hemostasis was observed. The mother and baby are recovering in stable and good condition in the room. Sponge, needle and instrument counts were correct x 2. DO LUKAS Bryant Vaginal Delivery Charge Vaginal Delivery Codes: 64148 global code for the antepartum, delivery, and post- Delivery Type Details: and 3rd Degree LAC
[2023-03-13 13:32] LABS: Cord Venous Blood PCO2 88 mmHg (30.4-57.2); Cord Venous Blood PO2 < 20 mmHg (14.1-43.3); Cord Venous Blood pH < 7.00 (7.20-7.44); O2 Saturation Cord Venous Bld < 60.0 % (<68)
[2023-03-13 13:33] LABS: Base Excess Cord Arterial Bld -9.3 mEq/L (-9-1.8); CO2 Cord Arterial Blood 51 mmHg (39.1-73.5); HCO3 Cord Arterial Blood 20 mmol/L (19.7-28.5); Oxygen Sat Cord Arterial Blood 63.9 % (<60); PO2 Cord Arterial Blood 34 mmHg (4.1-31.7); pH Cord Arterial Blood 7.19 (7.1-7.38)
[2023-03-13] MEDS ORDERED: bisacodyL 10 MG SUPP PR PRN (13:39)
[2023-03-13] MEDS ORDERED: HYDROCORTISONE ACETATE 25 MG SUPP PR PRN (13:39)
[2023-03-13] MEDS ORDERED: DIPHTHERIA/TETANUS/PERTUSSIS Vaccine (Tdap, Age 7+yrs) 0.5mL SYR/VL IM ONE (13:39)
[2023-03-13] MEDS ORDERED: CARBOPROST TROMETHAMINE 250 MCG/ML AMPUL IM ONE (13:39)
[2023-03-13] MEDS ORDERED: oxyCODONE/ACETAMINOPHEN 5mg/325mg TAB PO PRN (13:39)
[2023-03-13] MEDS ORDERED: BENZOCAINE 20% SPRY 85 APPLN/85 GM CAN EXT PRN (13:39)
[2023-03-13] MEDS ORDERED: OXYTOCIN 30 UNITS/NSS 30 UNITS/500 ML BAG IV PRN (13:39)
[2023-03-13] MEDS ORDERED: METHYLERGONOVINE MALEATE 0.2 MG/ML AMP IM ONE (13:39)
[2023-03-13] MEDS ORDERED: TRANEXAMIC ACID / 0.7% NACL 1,000 MG/100 ML BAG IV STA (13:39)
--- NOTE | 2023-03-13 14:30 | Anesthesia Procedure Note ---
Date of Service March 13, 2023 Anesthesia Post Epidural Note Vital Signs Vital Signs: Temp Pulse Resp BP Pulse Ox O2 Del Method 37.0 C 133 H 18 133/81 95 Room Air 03/13/23 12:48 03/13/23 14:16 03/13/23 12:48 03/13/23 14:16 03/13/23 13:16 03/12/23 23:15 Pain Intensity Right Groin: Pain Intensity: 8 Notes Mental Status: alert / awake / arousable and participated in evaluation Nausea / Vomiting: adequately controlled Pain: adequately controlled Airway Patency, RR, SpO2: stable & adequate BP & HR: stable & adequate Hydration State: stable & adequate Neuraxial Anesthesia: was administered and sensory block is resolving Anesthetic Complications: no major complications apparent and Pt Satisfied with anesthetic care Epidural: Removed without complications and With tip intact
[2023-03-13] MEDS: ACETAMINOPHEN 325 MG TAB PO PRN ×2 (14:44→21:17)
--- NOTE | 2023-03-13 15:43 | Obstetrical Progress Note ---
Date of Service March 13, 2023 Assessment & Plan Admission and Anticipated Discharge Date Admission Date: March 12, 2023 Subjective Doing well. 2 Raytec sponges removed from vagina, excellent hemostasis. Results & Data Vital Signs (Past 12 Hours) Vital Signs Temp Pulse Resp BP Pulse Ox 03/13/23 15:41 103 H 123/66 03/13/23 15:05 122 H 129/71 03/13/23 14:46 108 H 112/67 03/13/23 14:45 20 03/13/23 14:30 122 H 123/78 03/13/23 14:16 133 H 133/81 03/13/23 14:15 20 03/13/23 14:01 141 H 133/84 03/13/23 13:46 142 H 138/87 03/13/23 13:31 129 H 134/87 03/13/23 13:26 151 H 143/85 H 03/13/23 13:20 111 H 136/94 03/13/23 13:16 132 H 95 03/13/23 13:11 125 H 98 03/13/23 13:10 122 H 142/84 H 03/13/23 13:06 106 H 98 03/13/23 13:05 110 H 143/86 H 03/13/23 13:01 115 H 96 03/13/23 12:56 107 H 97 03/13/23 12:51 117 H 100 03/13/23 12:50 111 H 128/79 03/13/23 12:48 18 03/13/23 12:48 37.0 C 18 03/13/23 12:46 115 H 97 03/13/23 12:41 114 H 98 03/13/23 12:36 133 H 98 03/13/23 12:35 130 H 126/59 L 03/13/23 12:32 144 H 166/88 H 03/13/23 12:31 128 H 95 03/13/23 12:26 151 H 97 03/13/23 12:21 175 H 97 03/13/23 12:16 138 H 97 03/13/23 12:11 142 H 95 03/13/23 12:06 148 H 98 03/13/23 12:01 126 H 98 03/13/23 11:56 126 H 97 03/13/23 11:51 139 H 99 03/13/23 11:50 129 H 116/56 L 03/13/23 11:46 125 H 95 03/13/23 11:41 110 H 96 03/13/23 11:36 149 H 100 03/13/23 11:35 106 H 120/62 03/13/23 11:32 139 H 88 L 03/13/23 11:31 117 H 98 03/13/23 11:25 102 H 97 03/13/23 11:21 127 H 122/66 03/13/23 11:20 127 H 100 03/13/23 11:15 133 H 100 03/13/23 11:10 20 03/13/23 11:10 37.0 C 104 H 20 98 03/13/23 11:05 101 H 120/64 99 03/13/23 11:00 133 H 100 03/13/23 10:55 92 H 99 03/13/23 10:50 101 H 99 03/13/23 10:45 91 H 100 03/13/23 10:40 84 100 03/13/23 10:36 96 H 132/81 03/13/23 10:35 91 H 100 03/13/23 10:30 113 H 99 03/13/23 10:25 91 H 97 03/13/23 10:20 93 H 100 03/13/23 10:15 111 H 100 03/13/23 10:10 90 100 03/13/23 10:05 92 H 98 03/13/23 10:00 96 H 100 03/13/23 09:55 100 H 97 03/13/23 09:52 78 124/85 03/13/23 09:50 91 H 100 03/13/23 09:45 86 99 03/13/23 09:40 92 H 99 03/13/23 09:39 20 03/13/23 09:39 36.8 C 20 03/13/23 09:35 89 131/80 98 03/13/23 09:30 83 99 03/13/23 09:25 73 100 03/13/23 09:21 84 136/86 03/13/23 09:20 82 100 03/13/23 09:15 87 100 03/13/23 09:10 83 100 03/13/23 09:06 107 H 141/83 H 03/13/23 09:05 106 H 100 03/13/23 09:03 18 03/13/23 09:03 18 03/13/23 09:00 120 H 100 03/13/23 08:55 83 97 03/13/23 08:51 90 128/81 03/13/23 08:50 88 100 03/13/23 08:45 74 98 03/13/23 08:40 88 96 03/13/23 08:35 83 136/75 96 03/13/23 08:30 85 99 03/13/23 08:25 68 99 03/13/23 08:20 76 137/78 99 03/13/23 08:15 78 99 03/13/23 08:10 83 100 03/13/23 08:05 89 99 03/13/23 08:04 98 H 84 L 03/13/23 08:01 20 03/13/23 08:01 20 03/13/23 08:00 106 H 99 03/13/23 07:55 94 H 99 03/13/23 07:51 75 133/90 03/13/23 07:50 97 H 97 03/13/23 07:45 94 H 98 03/13/23 07:40 76 97 03/13/23 07:37 85 132/84 03/13/23 07:35 88 97 03/13/23 07:30 89 99 03/13/23 07:25 97 H 99 03/13/23 07:21 36.8 C 87 18 154/83 H 03/13/23 07:20 82 97 03/13/23 07:16 96 H 88 L 03/13/23 07:15 79 95 03/13/23 07:10 93 H 99 03/13/23 07:07 93 H 140/87 03/13/23 07:05 96 H 98 03/13/23 07:00 105 H 18 100 03/13/23 06:55 87 100 03/13/23 06:51 88 135/83 03/13/23 06:50 92 H 97 03/13/23 06:45 110 H 93 03/13/23 06:40 89 99 03/13/23 06:36 86 143/83 H 03/13/23 06:35 90 100 03/13/23 06:30 37.2 C 109 H 18 100 03/13/23 06:25 107 H 100 03/13/23 06:22 88 120/96 03/13/23 06:20 86 100 03/13/23 06:15 109 H 97 03/13/23 06:10 66 96 03/13/23 06:06 70 151/74 H 03/13/23 06:05 97 H 96 03/13/23 06:00 95 H 18 96 03/13/23 05:55 103 H 97 03/13/23 05:52 68 137/75 03/13/23 05:50 76 125/70 98 03/13/23 05:45 76 96 03/13/23 05:40 74 96 03/13/23 05:36 61 124/74 03/13/23 05:35 68 95 03/13/23 05:34 73 92 03/13/23 05:30 96 H 18 97 03/13/23 05:25 69 95 03/13/23 05:21 62 137/78 03/13/23 05:20 69 98 03/13/23 05:15 72 95 03/13/23 05:10 67 100 03/13/23 05:06 72 138/76 03/13/23 05:05 75 90 03/13/23 05:04 81 93 03/13/23 05:00 73 18 97 03/13/23 04:56 86 93 03/13/23 04:55 73 99 03/13/23 04:52 72 130/75 03/13/23 04:50 95 03/13/23 04:50 77 03/13/23 04:50 83 93 03/13/23 04:45 84 99 03/13/23 04:40 78 99 03/13/23 04:35 83 136/73 99 03/13/23 04:30 81 18 97 03/13/23 04:25 78 97 03/13/23 04:21 75 132/80 03/13/23 04:20 80 98 03/13/23 04:15 97 03/13/23 04:15 76 03/13/23 04:15 73 93 03/13/23 04:10 92 H 96 03/13/23 04:09 104 H 87 L 03/13/23 04:06 79 120/73 03/13/23 04:04 78 98 03/13/23 04:00 18 03/13/23 04:00 36.8 C 18 03/13/23 03:59 79 100 0103/24 03:54 86 99 03/13/23 03:51 76 113/67 93 03/13/23 03:49 69 98 03/13/23 03:46 70 94 03/13/23 03:44 79 99 PG Care Time/CCT Total # of Minutes Spent Total Time Spent with Patient: Total time spent is greater than 50% in coordination of care (as documented) at patient's floor/unit and/or counseling patient: Coding Level of Care Code None
[2023-03-13] MEDS: LEVOTHYROXINE SODIUM 112 MCG TABLET PO SCH (17:07)
[2023-03-13 18:38] LABS: Hematocrit (blood only) 28.9 % (37.0-47.0); Hemoglobin 9.6 g/dl (12.0-16.0)
[2023-03-13] MEDS: DOCUSATE SODIUM 100 MG CAP PO SCH (21:16)
[2023-03-14] MEDS: IBUPROFEN 600 MG TAB PO PRN ×4 (01:23→21:09)
[2023-03-14] MEDS: ACETAMINOPHEN 325 MG TAB PO PRN ×3 (03:28→17:36)
[2023-03-14] MEDS: LEVOTHYROXINE SODIUM 112 MCG TABLET PO SCH (06:14)
[2023-03-14 06:34] LABS: Hematocrit (blood only) 26.2 % (37.0-47.0); Hemoglobin 8.6 g/dl (12.0-16.0)
[2023-03-14] MEDS: PRENATAL VITAMIN 1 TAB PO SCH (07:49)
[2023-03-14] MEDS: DOCUSATE SODIUM 100 MG CAP PO SCH ×2 (07:50→21:09)
--- NOTE | 2023-03-14 08:09 | Obstetrical Progress Note ---
Date of Service March 14, 2023 Assessment & Plan (1) resulting from in vitro fertilization, antepartum: PPD#1 doing well. Continue care. Anticipate DC home tomorrow. Subjective Ambulation: ambulating normally Voiding: no voiding problems Diet Tolerance:: regular diet Lochia:: Moderate Review of Systems All systems reviewed & are unremarkable except as noted in HPI & below Physical Exam Constitutional WD/WN, vitals as above no acute distress Respiratory normal respiratory effort Cardiovascular Rate/Rhythm: regular rate and regular rhythm Gastrointestinal (Abdomen) Inspection/Auscultation: abdomen normal to inspection; abdomen not distended Percussion/Palpation: abdomen soft Genitourinary OB Exam Abdomen: + fundal height Fundus: + firm; not tender Results & Data Vital Signs (Past 12 Hours) Vital Signs Temp Pulse Resp BP Pulse Ox O2 Del Method 03/14/23 03:00 36.5 C 91 H 16 111/74 97 Room Air 03/13/23 23:40 36.5 C 88 18 126/84 97 Room Air 03/13/23 21:20 36.6 C 96 H 18 129/86 98 Room Air
[2023-03-14] MEDS ORDERED: bisacodyL 5 MG TABEC PO SCH (20:00)
[2023-03-15] MEDS: CALCIUM CARBONATE 500 MG CHEWABLE TAB PO PRN (01:44)
[2023-03-15] MEDS: LEVOTHYROXINE SODIUM 112 MCG TABLET PO SCH (06:11)
--- NOTE | 2023-03-15 07:09 | Obstetrical Progress Note ---
Date of Service March 15, 2023 Assessment & Plan (1) Encounter for care and examination after delivery: 27 yo PP2 s/p , doing well VSS Rh neg, s/p rhogam, rub imm stable for dc Subjective Ambulation: ambulating normally Voiding: no voiding problems Passing Gas:: Yes Diet Tolerance:: regular diet Lochia:: Small Feeding Type:: breast feeding Pain well managed with medication, pressure at stitches Review of Systems Denies fevers, chills, n/v, VIGIL, CP, SOB Physical Exam Constitutional WD/WN, vitals as above no acute distress Respiratory normal respiratory effort, lungs clear to auscultation Cardiovascular RRR, no murmur, no edema Gastrointestinal (Abdomen) Percussion/Palpation: abdomen soft; abdomen nontender fundus firm at umbilicus and NT Musculoskeletal BLE symmetric, nonerythematous, nontender Results & Data Vital Signs (Past 12 Hours) Vital Signs Temp Pulse Resp BP Pulse Ox O2 Del Method 03/14/23 23:04 98.1 F 78 18 103/66 99 Room Air
[2023-03-15] MEDS: DOCUSATE SODIUM 100 MG CAP PO SCH (08:27)
[2023-03-15] MEDS: PRENATAL VITAMIN 1 TAB PO SCH (08:27)
== END 2023-03-15 11:45 | disposition home or self-care (01) | DRG 768 ==
LOC: 4S1 07:22 → 4E2 03-13 16:46